=== PATIENT | male | born 1970 | race American Indian/Alaskan Native ===

== ENCOUNTER 2021-06-12 10:39 | Emergency (ER) | payer SELFPAY ==
--- NOTE | 2021-06-12 22:12 | Emergency Department Report ---
ED General Adult HPI - General Chief complaint: Skin/Abscess/Foreign Body Stated complaint: FEEDING TUBE CAME OUT Time Seen by Provider: 06/12/21 21:31 Source: patient Mode of arrival: Ambulatory Limitations: Physical Limitation - History of Present Illness Initial comments: Patient is 51 years old male with history of recent CVA. Patient presented to the ER stating that his PEG tube fell out this morning. Patient stated that he is eating and drinking with no difficulties. He said he is not using his PEG tube anymore. Patient denied any fever or chills. No chest pain or shortness of breath. No difficulty swallowing. Severity scale (0 -10): 0 - Related Data Allergies Allergy/AdvReac Type Severity Reaction Status Date / Time No Known Allergies Allergy Unverified 06/12/21 11:07 ED Review of Systems ROS: Stated complaint: FEEDING TUBE CAME OUT Other details as noted in HPI Comment: All other systems reviewed and negative Constitutional: denies: chills, fever Respiratory: denies: cough, shortness of breath, SOB with exertion Cardiovascular: denies: chest pain, palpitations Gastrointestinal: denies: abdominal pain, nausea, vomiting Neurological: denies: headache ED Physical Exam - General Limitations: Physical Limitation General appearance: alert, in no apparent distress - Head Head exam: Present: atraumatic, normocephalic, normal inspection - Eye Eye exam: Present: normal appearance - ENT ENT exam: Present: normal exam, normal orophraynx, mucous membranes moist - Neck Neck exam: Present: normal inspection. Absent: tenderness, meningismus - Respiratory Respiratory exam: Present: normal lung sounds bilaterally - Cardiovascular Cardiovascular Exam: Present: regular rate, normal rhythm, normal heart sounds - GI/Abdominal GI/Abdominal exam: Present: soft, normal bowel sounds, other (PEG tube stoma closed.). Absent: distended, tenderness, guarding, rebound, rigid - Back Exam Back exam: Present: normal inspection. Absent: CVA tenderness (R), CVA tenderness (L) - Neurological Exam Neurological exam: Present: alert, oriented X3 - Skin Skin exam: Present: warm ED Course Vital Signs 06/12/21 11:14 Temperature 98.4 F Pulse Rate 77 Respiratory 18 Rate Blood Pressure 168/103 [Right] O2 Sat by Pulse 97 Oximetry ED Medical Decision Making - Medical Decision Making Patient is 51 years old male with history of recent CVA. Patient presented to the ER stating that his PEG tube fell out this morning. Patient stated that he is eating and drinking with no difficulties. He said he is not using his PEG tube anymore. Patient denied any fever or chills. No chest pain or shortness of breath. No difficulty swallowing. Patient stable with a stable ER. I tried to put the PEG tube in however unable to most likely because the stoma is closed now. Patient stated that he does remember the last time he used it and he does not need it anymore because he is able to eat and drink. I told the patient to follow-up with his spooler operator automatic to decide if he needs a new one or not. At this moment I do not think patient will need an emergency PEG tube placed. Patient advised to return to the ER if he is having any difficulty in swallowing or if he has any other symptoms. Critical care attestation.: If time is entered above; I have spent that time in minutes in the direct care of this critically ill patient, excluding procedure time. ED Disposition Clinical Impression: PEG tube malfunction Disposition: 01 HOME / SELF CARE / HOMELESS Is pt being admited?: No Condition: Stable Instructions: PEG Tube Home Guide, [id number] Referrals: PRIMARY CARE, [Primary Care Provider] - 3-5 Days
[2021-06-12 23:18] VITALS: BP 132/78
== END 2021-06-12 23:00 | disposition home or self-care (01) ==
LOC: ED 10:39
DX: K94.23 Gastrostomy malfunction (principal)
CPT/HCPCS: 99282